=== PATIENT | male | born 1965 | race American Indian/Alaskan Native ===

== ENCOUNTER 2017-02-03 14:29 | Emergency (ER) | payer SELFPAY ==
[2017-02-03 16:00] LABS: Basophils % (Auto) 1.1 % (0.0-1.8); Eosinophils % (Auto) 1.9 % (0.0-4.3); Hematocrit 44.7 % (35.5-45.6); Hemoglobin 14.7 gm/dl (11.8-15.2); Mean Corpuscular HGB Conc 33 % (32-34); Mean Corpuscular Hemoglobin 29 pg (28-32); Mean Corpuscular Volume 88 fl (84-94); Platelet Count 230 K/mm3 (140-440); Red Blood Count 5.07 M/mm3 (3.65-5.03); Red Cell Distribution Width 13.2 % (13.2-15.2); White Blood Count 6.2 K/mm3 (4.5-11.0)
[2017-02-03 16:19] LABS: Anion Gap 16 mmol/L; BUN/Creatinine Ratio 24; Blood Urea Nitrogen 19 mg/dL (9-20); Calcium 9.2 mg/dL (8.4-10.2); Carbon Dioxide 24 mmol/L (22-30); Glucose 123 mg/dL (75-100); Potassium 4.2 mmol/L (3.6-5.0); Sodium 140 mmol/L (137-145)
[2017-02-03] MEDS ORDERED: NACL 0.9% 250ML 250 ML IV ONE (16:35)
--- NOTE | 2017-02-03 16:36 | Emergency Department Report ---
ED Chest Pain HPI - General Chief Complaint: Chest Pain Stated Complaint: CHEST PAIN Time Seen by Provider: 02/03/17 16:24 Source: patient, EMS (ems notes not available at time of chart dictation) Mode of arrival: Stretcher Limitations: No Limitations - History of Present Illness Initial Comments: This is a 51-year-old male. His primary care doctor is Dr. Pickens. He has a past medical history of hypertension. He presents to the ER with a complaint of chest pain. Chest pain is epigastric and substernal. It does not radiates to the back, arms or neck. There is no shortness of breath, nausea, vomiting or diaphoresis. There is no leg pain. There is no leg swelling. No DVT or pulmonary embolus risk factors. The patient also describes simultaneous right flank pain. The pain increases with standing, talking, twisting, and walking. It does not radiate anywhere. MD Complaint: chest pain -: Gradual, days(s) (patient reports chest pain and flank pain and have him present for a few days) Pain Location: substernal, epigastric Severity: mild Severity scale (0 -10): 0 Quality: aching Consistency: intermittent Improves With: nothing Worsens With: other (as per history of present illness) re: denies: nausea, vomting, diaphoresis, dyspnea, sense of impending doom Other Symptoms: denies: cough, fever, syncope Aspirin use within the Past 7 Days: (0) No - Related Data On Oral Contraceptives: No Home Medications Medication Instructions Recorded Confirmed Last Taken Metoprolol [Lopressor TAB] 25 mg PO QDAY 02/03/17 02/03/17 Unknown Valsartan [Diovan] 160 mg PO QDAY 02/03/17 02/03/17 Unknown amLODIPine [Norvasc] 10 mg PO QDAY 02/03/17 02/03/17 Unknown Allergies Allergy/AdvReac Type Severity Reaction Status Date / Time No Known Allergies Allergy Unverified 02/03/17 14:38 Heart Score - HEART Score History: Slightly suspicious EKG: Non-specific Age: 45-65 Risk factors: 1-2 risk factors Troponin: < normal limit HEART Score: 3 - Critical Actions Critical Actions: 0-3 pts:0.9-1.7%risk of adverse cardiac event.Candidate for discharge ED Review of Systems ROS: Stated complaint: CHEST PAIN Other details as noted in HPI Constitutional: denies: fever Eyes: denies: vision change ENT: denies: epistaxis Respiratory: denies: cough Cardiovascular: chest pain Gastrointestinal: abdominal pain Genitourinary: denies: dysuria Musculoskeletal: denies: back pain Skin: denies: lesions Neurological: denies: weakness Psychiatric: denies: anxiety ED Past Medical Hx - Past Medical History Hx Hypertension: Yes - Surgical History Additional Surgical History: Right ear - Social History Smoking Status: Former Smoker Substance Use Type: Alcohol - Medications Home Medications: Home Medications Medication Instructions Recorded Confirmed Last Taken Type Metoprolol [Lopressor TAB] 25 mg PO QDAY 02/03/17 02/03/17 Unknown History Valsartan [Diovan] 160 mg PO QDAY 02/03/17 02/03/17 Unknown History amLODIPine [Norvasc] 10 mg PO QDAY 02/03/17 02/03/17 Unknown History ED Physical Exam - General Limitations: No Limitations General appearance: alert, in no apparent distress - Head Head exam: Present: atraumatic, normocephalic - Eye Eye exam: Present: normal appearance, EOMI. Absent: nystagmus - ENT ENT exam: Present: normal exam, normal orophraynx, mucous membranes moist, normal external ear exam - Neck Neck exam: Present: normal inspection, full ROM. Absent: tenderness, meningismus - Respiratory Respiratory exam: Present: normal lung sounds bilaterally. Absent: respiratory distress, wheezes, rales, rhonchi, stridor, decreased breath sounds - Cardiovascular Cardiovascular Exam: Present: normal rhythm, bradycardia, normal heart sounds. Absent: tachycardia, irregular rhythm, systolic murmur, diastolic murmur, rubs, gallop - GI/Abdominal GI/Abdominal exam: Present: soft, normal bowel sounds. Absent: distended, tenderness, guarding, rebound, rigid, pulsatile mass - Rectal Rectal exam: Present: deferred - Extremities Exam Extremities exam: Present: normal inspection, full ROM, normal capillary refill. Absent: pedal edema, joint swelling, calf tenderness - Back Exam Back exam: Present: normal inspection, full ROM. Absent: tenderness, CVA tenderness (R), CVA tenderness (L), muscle spasm, paraspinal tenderness, vertebral tenderness - Neurological Exam Neurological exam: Present: alert, oriented X3, normal gait, other (Extraocular movements intact. Tongue midline. No facial droop. Facial sensation intact to light touch in the V1, V2, V3 distribution bilaterally. 5 and 5 strength in 4 extremities.. Sensation is intact to light touch in 4 extremities.). Absent : motor sensory deficit - Psychiatric Psychiatric exam: Present: normal affect, normal mood, other (2+ pulses noted in the bilateral upper and lower extremities) - Skin Skin exam: Present: warm, dry, intact, normal color. Absent: rash ED Course Vital Signs 02/03/17 02/03/17 02/03/17 14:31 14:38 14:46 Temperature 98.0 F Pulse Rate 52 L 54 L 54 L Respiratory 11 L 15 Rate Blood Pressure 140/74 O2 Sat by Pulse 99 99 Oximetry 02/03/17 02/03/17 02/03/17 15:00 15:30 16:18 Temperature Pulse Rate 53 L 49 L 49 L Respiratory 14 12 13 Rate Blood Pressure 121/70 124/79 124/79 O2 Sat by Pulse 100 100 100 Oximetry 02/03/17 02/03/17 02/03/17 16:30 17:26 17:30 Temperature Pulse Rate 62 Respiratory 13 Rate Blood Pressure 124/79 124/79 124/79 O2 Sat by Pulse 100 99 99 Oximetry 02/03/17 02/03/17 02/03/17 18:00 18:30 19:00 Temperature Pulse Rate 48 L 59 L 50 L Respiratory 9 L 12 12 Rate Blood Pressure 143/81 143/81 157/86 O2 Sat by Pulse 100 99 100 Oximetry 02/03/17 02/03/17 02/03/17 19:30 20:00 20:30 Temperature Pulse Rate 51 L 50 L 48 L Respiratory 12 14 16 Rate Blood Pressure 147/86 138/79 129/87 O2 Sat by Pulse 96 97 99 Oximetry 02/03/17 02/03/17 02/03/17 21:00 22:24 22:30 Temperature Pulse Rate 51 L Respiratory 13 Rate Blood Pressure 139/91 129/87 148/84 O2 Sat by Pulse 98 99 97 Oximetry 02/03/17 02/03/17 02/03/17 22:45 23:00 23:30 Temperature 98.3 F Pulse Rate Respiratory Rate Blood Pressure 151/92 150/88 O2 Sat by Pulse 99 100 Oximetry - Reevaluation(s) Reevaluation #1: 02/03/17 19:[address] scan demonstrated pneumomediastinum. Consult obtained from [facility] cardiothoracic surgeon, Dr. Yuniel Yu MD He recommends broad-spectrum antibiotics, Zosyn in particular, and opined that patient can eventually be discharged with Augmentin. Also recommends an esophagram. We both agree that the patient does not require transfer at this time, however he indicates that the patient can be transferred if he develops any complications or his clinical course changes, and he also indicates his service can be contacted at any time if the inpatient team has any questions. Reevaluation #2: 02/03/17 19:18 Dr. Singer accepted the patient to the medical service. Reevaluation #3: 02/03/17 19:19 I will defer to the inpatient team to obtain the esophagram. Reevaluation #4: 02/03/17 19:44 Change in plans: Contacted pulmonology, Dr. Bañuelos; she recommends transfer to facility that has cardiothoracic surgery. Hospital physician, Dr. Singer, indicates he cannot accept the patient given diagnosis o of pneumomediastinum. This is because this hospital does not have cardiothoracic surgery available for consultation. I have recontacted [facility], and rediscuss the case with their cardiothoracic surgeon , Dr. Yuniel Yu MD He indicates he is amenable to consultation on the patient at the [facility], but requests that their medical team admit the patient. Reevaluation #5: 02/03/17 20:42 [place] [facility]. At this point time, they've been unable to return my phone calls, although the [facility] transfer center has updated me that they're still waiting to get in touch with their hospitalist team. I have then contacted the [facility] transfer Center and spoke to their cardiothoracic surgeon, Dr. Freeman, who accepted the patient is a transfer. The family is informed. I have requested my nursing staff to inform the [facility] transfer center that request for transfer has been canceled. Family has been informed. ROSIO score - Rosio Score Age > 65: (0) No Aspirin use within the Past 7 Days: (0) No 3 or more CAD Risk Factors: (0) No 2 or more Angina events in past 24 hrs: (0) No Known CAD with more than 50% Stenosis: (0) No Elevated Cardiac Markers: (0) No ED Medical Decision Making - Lab Data Result diagrams: 02/03/17 15:50 02/03/17 14:44 Vital Signs 02/03/17 02/03/17 02/03/17 14:31 14:38 14:46 Temperature 98.0 F Pulse Rate 52 L 54 L 54 L Respiratory 11 L 15 Rate Blood Pressure 140/74 O2 Sat by Pulse 99 99 Oximetry 02/03/17 02/03/17 02/03/17 15:00 15:30 16:18 Temperature Pulse Rate 53 L 49 L 49 L Respiratory 14 12 13 Rate Blood Pressure 121/70 124/79 124/79 O2 Sat by Pulse 100 100 100 Oximetry 02/03/17 02/03/17 02/03/17 16:30 17:26 17:30 Temperature Pulse Rate 62 Respiratory 13 Rate Blood Pressure 124/79 124/79 124/79 O2 Sat by Pulse 100 99 99 Oximetry Lab Results 02/03/17 02/03/17 02/03/17 Range/Units 14:44 15:50 16:15 WBC 6.2 (4.5-11.0) K/mm3 RBC 5.07 H (3.65-5.03) M/mm3 Hgb 14.7 (11.8-15.2) gm/dl Hct 44.7 (35.5-45.6) % MCV 88 (84-94) fl MCH 29 (28-32) pg MCHC 33 (32-34) % RDW 13.2 (13.2-15.2) % Plt Count 230 (140-440) K/mm3 Lymph % (Auto) 34.7 (13.4-35.0) % [place] % (Auto) 8.2 H (0.0-7.3) % Eos % (Auto) 1.9 (0.0-4.3) % Baso % (Auto) 1.1 (0.0-1.8) % Lymph # 2.2 (1.2-5.4) K/mm3 [place] # 0.5 (0.0-0.8) K/mm3 Eos # 0.1 (0.0-0.4) K/mm3 Baso # 0.1 (0.0-0.1) K/mm3 Seg Neutrophils % 54.1 (40.0-70.0) % Seg Neutrophils # 3.4 (1.8-7.7) K/mm3 PT 13.3 (12.2-14.9) Sec. INR 0.96 (0.87-1.13) APTT 31.7 (24.2-36.6) Sec. D-Dimer (0-234) ng/mlDDU Sodium 140 (137-145) mmol/L Potassium 4.2 (3.6-5.0) mmol/L Chloride 104.0 (98-107) mmol/L Carbon Dioxide 24 (22-30) mmol/L Anion Gap 16 mmol/L BUN 19 (9-20) mg/dL Creatinine 0.8 (0.8-1.5) mg/dL Estimated GFR > 60 ml/min BUN/Creatinine Ratio 24 % Glucose 123 H (75-100) mg/dL Calcium 9.2 (8.4-10.2) mg/dL Troponin T < 0.010 (0.00-0.029) ng/mL Urine Color (Yellow) Urine Turbidity (Clear) Urine pH (5.0-7.0) Ur Specific [place] (1.003-1.030) Urine Protein (Negative) mg/dL Urine Glucose (UA) (Negative) mg/dL Urine Ketones (Negative) mg/dL Urine Blood (Negative) Urine Nitrite (Negative) Urine Bilirubin (Negative) Urine Urobilinogen (<2.0) mg/dL Ur Leukocyte Esterase (Negative) Urine WBC (Auto) (0.0-6.0) /HPF Urine RBC (Auto) (0.0-6.0) /HPF 02/03/17 02/03/17 Range/Units 16:15 17:50 WBC (4.5-11.0) K/mm3 RBC (3.65-5.03) M/mm3 Hgb (11.8-15.2) gm/dl Hct (35.5-45.6) % MCV (84-94) fl MCH (28-32) pg MCHC (32-34) % RDW (13.2-15.2) % Plt Count (140-440) K/mm3 Lymph % (Auto) (13.4-35.0) % [place] % (Auto) (0.0-7.3) % Eos % (Auto) (0.0-4.3) % Baso % (Auto) (0.0-1.8) % Lymph # (1.2-5.4) K/mm3 [place] # (0.0-0.8) K/mm3 Eos # (0.0-0.4) K/mm3 Baso # (0.0-0.1) K/mm3 Seg Neutrophils % (40.0-70.0) % Seg Neutrophils # (1.8-7.7) K/mm3 PT (12.2-14.9) Sec. INR (0.87-1.13) APTT (24.2-36.6) Sec. D-Dimer 579.3 H (0-234) ng/mlDDU Sodium (137-145) mmol/L Potassium (3.6-5.0) mmol/L Chloride (98-107) mmol/L Carbon Dioxide (22-30) mmol/L Anion Gap mmol/L BUN (9-20) mg/dL Creatinine (0.8-1.5) mg/dL Estimated GFR ml/min BUN/Creatinine Ratio % Glucose (75-100) mg/dL Calcium (8.4-10.2) mg/dL Troponin T (0.00-0.029) ng/mL Urine Color Straw (Yellow) Urine Turbidity Clear (Clear) Urine pH 6.0 (5.0-7.0) Ur Specific [place] 1.024 (1.003-1.030) Urine Protein <15 mg/dl (Negative) mg/dL Urine Glucose (UA) Neg (Negative) mg/dL Urine Ketones Neg (Negative) mg/dL Urine Blood Sm (Negative) Urine Nitrite Neg (Negative) Urine Bilirubin Neg (Negative) Urine Urobilinogen < 2.0 (<2.0) mg/dL Ur Leukocyte Esterase Neg (Negative) Urine WBC (Auto) < 1.0 (0.0-6.0) /HPF Urine RBC (Auto) 1.0 (0.0-6.0) /HPF - EKG Data -: EKG Interpreted by [place] - EKG Data 02/03/17 19:18 EKG #1 demonstrates sinus bradycardia, 52 bpm, nonspecific ST abnormality, not morphologically consistent with ST elevation myocardial infarction. Repeat EKG is unchanged. - Radiology Data Radiology results: report reviewed, image reviewed interpreted by me: X-ray the chest is negative for acute disease CT scan of the chest: No pulmonary embolus. No obvious dissection noted. The right upper trachea demonstrates a small amount of pneumomediastinum. The esophagus is located to the left of midline and has a collapsed appearance. No surrounding air or inflammation in the adjacent fat is seen along the upper esophagus. Perforated viscus of the esophagus is not excluded. Critical care attestation.: If time is entered above; I have spent that time in minutes in the direct care of this critically ill patient, excluding procedure time. ED Disposition Clinical Impression: Pneumomediastinum Dis[facility] IP Is pt being admited?: No Condition: Good Referrals: PRIMARY CAREMD [Primary Care Provider] - 3-5 Days
[2017-02-03 16:38] LABS: INR 0.96 (0.87-1.13)
--- NOTE | 2017-02-03 16:38 | XRay Report ---
Chest 2 views. History: Chest pain. Findings: The heart and pulmonary vessels are normal. The lungs are clear. There is no pleural fluid. Degenerative disc changes are seen in the mid and lower dorsal spine. Impression: No acute findings.
[2017-02-03 16:39] LABS: Partial Thromboplastin Time 31.7 Sec. (24.2-36.6)
--- NOTE | 2017-02-03 17:05 | History and Physical Report ---
History of Present Illness Chief complaint: My chest hurts History of present illness: 51 YO Male with HTN, Obesity presents to ED for evaluation. Pt states that he has experienced pain in his chest for the past week with worsening and more frequent symptoms over the past 3 days. Pt states that pain is 4-6/10, intermittent, substernal, nonradiating, not worsened with exertion, or relieved with rest, not associated with meals. Pt denies fever, chills, Palpitations, shortness of breath, nausea, vomiting, diaphoresis, productive cough, unintentional weight loss, night sweats, prolonged travel/immobility, leg swelling, calf pain, individual/family history of DVT/PE. Pt seen and evaluated in ED. Pt was found to have Nonspecific EKG changes without previous EKG for comparison. Pt also had an elevated Ddimer, and underwent CTA chest which revealed pneumomediastinum. Pt was subsequently admitted for ICU. Upon further discussion and evaluation, the patient was transferred for further care and possible evaluation by CT surgery. Past History Past Medical History: hypertension, other (Obesity) Past Surgical History: Other (right ear) Social history: , lives with family. denies: smoking, alcohol abuse, prescription drug abuse Family history: CAD, hypertension Medications and Allergies Allergies Allergy/AdvReac Type Severity Reaction Status Date / Time No Known Allergies Allergy Unverified 02/03/17 14:38 Home Medications Medication Instructions Recorded Confirmed Last Taken Type Metoprolol [Lopressor TAB] 25 mg PO QDAY 02/03/17 02/03/17 Unknown History Valsartan [Diovan] 160 mg PO QDAY 02/03/17 02/03/17 Unknown History amLODIPine [Norvasc] 10 mg PO QDAY 02/03/17 02/03/17 Unknown History Review of Systems Constitutional: no weight loss, no weight gain, no fever, no chills Ears, nose, mouth and throat: no ear pain, no ear discharge, no tinnitis, no decreased hearing, no nose pain, no nasal congestion, no nasal discharge, no sinus pressure Cardiovascular: chest pain, no orthopnea, no palpitations, no rapid/irregular heart beat, no edema Respiratory: no cough, no cough with sputum, no excessive sputum, no hemoptysis , no shortness of breath Gastrointestinal: no abdominal pain, no nausea, no vomiting, no diarrhea Genitourinary Male: no hematuria, no flank pain, no discharge, no urinary frequency, no urinary hesitancy, no nocturia Rectal: no pain, no incontinence, no bleeding Musculoskeletal: no neck stiffness, no neck pain, no shooting arm pain, no arm numbness/tingling, no low back pain, no shooting leg pain, no leg numbness/ tingling Integumentary: no rash, no pruritis, no redness, no sores, no wounds, no jaundice Neurological: no head injury, no transient paralysis, no paralysis, no weakness , no parathesias, no numbness, no tingling, no seizures Psychiatric: no anxiety, no memory loss, no change in sleep habits, no sleep disturbances, no insomnia, no hypersomnia, no change in appetite, no change in libido Endocrine: no cold intolerance, no heat intolerance, no polyphagia, no excessive thirst, no polydipsia, no polyuria, no nocturia Hematologic/Lymphatic: no easy bruising, no easy bleeding Allergic/Immunologic: no urticaria, no allergic rhinitis, no wheezing Exam - Constitutional Vitals: Temp Pulse Resp BP Pulse Ox 98.0 F 53 L 14 121/70 100 02/03/17 14:38 02/03/17 15:00 02/03/17 15:00 02/03/17 15:00 02/03/17 15:00 General appearance: Present: mild distress - EENT Eyes: Present: PERRL ENT: hearing intact, clear oral mucosa - Neck Neck: Present: supple, normal ROM - Respiratory Respiratory effort: normal Respiratory: bilateral: CTA - Cardiovascular Heart Sounds: Present: S1 & S2. Absent: rub, click - Extremities Extremities: pulses symmetrical, No edema Peripheral Pulses: within normal limits - Abdominal General gastrointestinal: Present: soft, non-tender, non-distended, normal bowel sounds Male genitourinary: Present: normal - Integumentary Integumentary: Present: clear, warm, dry - Musculoskeletal Musculoskeletal: gait normal, strength equal bilaterally - Psychiatric Psychiatric: appropriate mood/affect, intact judgment & insight - Neurologic Neurologic: CNII-XII intact, moves all extremities Results - Labs CBC & Chem 7: 02/03/17 15:50 02/03/17 14:44 Labs: Abnormal lab results 02/03/17 02/03/17 Range/Units 14:44 15:50 RBC 5.07 H (3.65-5.03) M/mm3 [place] % (Auto) 8.2 H (0.0-7.3) % Glucose 123 H (75-100) mg/dL Assessment and Plan - Patient Problems (1) Pneumomediastinum Current Visit: Yes Status: Acute Plan to address problem: Pt initially admitted planned for ICU admission, but aafter further evaluation, Pt deemed high risk for possible decompensation if patient has esophageal leak. Pt to be transferred fot CT surgery evaluation. The high probability of a clinically significant, sudden or life threatening deterioration of the [Respiratory, cardiac, gi] system(s) required my full and direct attention, intervention and personal management. The aggregate critical care time was [65] minutes. This time is in addition to time spent performing reported procedures but includes the following: [x] Data Review and interpretation [x] Patient assessment and monitoring of vital signs [x] Documentation [x] Medication orders and management (2) HTN (hypertension) Current Visit: Yes Status: Acute Qualifiers: Hypertension type: H Plan to address problem: monitor bp q shift, continue medical management (3) Obesity Current Visit: Yes Status: Acute Qualifiers: Obesity type: O Obesity classification: O Serious obesity comorbidity presence: S Body mass index: BMI 33.0-33.9 Plan to address problem: Pt counseled, balanced diet, increased physical activity at discharge.
[2017-02-03 17:59] LABS: Urine Drugs of Abuse Note Disclamer
[2017-02-03 18:08] LABS: Bilirubin,Urine NEG (Negative); Blood,Urine SM (Negative); Ketones,Urine NEG (Negative); Leukocyte Esterase,Urine NEG (Negative); Nitrite,Urine NEG (Negative); Protein,Urine <15 mg/dL mg/dL (Negative); Urobilinogen,Urine < 2.0 mg/dL (<2.0); WBC,Urine < 1.0 /HPF (0.0-6.0)
--- NOTE | 2017-02-03 18:21 | Cat Scan Report ---
FINAL REPORT EXAM: CT ANGIO CHEST HISTORY: CP TECHNIQUE: Enhanced CT of the chest at 2.5 mm axial intervals following a pulmonary embolism protocol. Coronal and sagittal imaging were also obtained. Oblique coronal MIP projections were obtained. Contrast: 100 ml of Omnipaque 350 given IV. PRIORS: None. FINDINGS: There is no evidence for pulmonary embolism in the main pulmonary artery, right and left pulmonary arteries or their major distributions. However, CT does not exclude distal pulmonary emboli. There is a small amount of air (Pneumomediastinum) to the right of the upper trachea located between the inferior tip of the thyroid and the left brachiocephalic vein as it crosses midline. Significance is uncertain. At this level, the esophagus located to the left of midline, has a collapsed appearance. No surrounding air or inflammation in the adjacent fat is seen along the upper esophagus. There are small apical bulla present bilaterally. Otherwise, the lung parenchyma are expanded and clear with no evidence for parenchymal nodules, infiltrates, congestion, or pleural effusion. There is no evidence for mediastinal, hilar, or axillary adenopathy. Cardiovascular structures are within normal limits. No evidence for ventricular chamber enlargement is seen. Images through the lung bases include the upper abdomen which show a small 1.4 x 1.5 cm low-density nodule in the right adrenal gland, likely an adenoma. Bony structures demonstrate no focal abnormalities. IMPRESSION: 1. no evidence for pulmonary embolism. 2. the right of the upper trachea small amount of new mediastinum to the right of the upper trachea of uncertain etiology. Perforated viscus such as the esophagus is not excluded. 3. Small bilateral apical bulla 4. Nodule in the right adrenal gland, likely an adenoma.
--- NOTE | 2017-02-03 18:35 | Cat Scan Report ---
FINAL REPORT EXAM: CT ANGIO ABDOMEN PELVIS HISTORY: cp TECHNIQUE: Standard enhanced CTA of the abdomen and pelvis. Coronal and sagittal reconstruction was also performed. Imaging was obtained 1.25 mm and 2.5 mm axial increments. Oblique coronal MIP images of the abdomen and pelvis were obtained. Contrast: 100 mL Omnipaque 350 given IV. PRIORS: CT chest 02/03/2017 FINDINGS: No evidence for pneumoperitoneum is seen. No pneumomediastinum is seen in the lower lung bases. Within the abdomen, the liver, spleen, pancreas, gallbladder, left adrenal gland, and kidneys are unremarkable. There is a 1.4 x 1.5 cm nodule in the right adrenal gland. This appears low-density in its probably an adenoma. No evidence for retroperitoneal or pelvic lymphadenopathy is seen. Moderate stool is present throughout the colon. The bowel loops have normal caliber. No soft tissue mass, fluid collection, inflammatory change, or free air is seen within the abdomen or pelvis. The appendix is normal. The aorta is normal in caliber with minimal calcification of the wall. All of the major branches from the aorta and the common iliac arteries are all widely patent without significant atherosclerotic disease. Within the pelvis, the bladder is unremarkable. The prostate is normal. No evidence for mass or lymphadenopathy is seen in the pelvis. Images through the upper abdomen include the lung bases which are expanded and clear. Bony structures show no focal abnormalities and are intact. IMPRESSION: 1. no acute intra-abdominal process noted. 2. No evidence for free air within the abdomen. 3. Nodule in the right adrenal gland, probably an adenoma.
[2017-02-03] MEDS ORDERED: ZOSYN/NS 4.5GM/100ML 4.5 GM/100 ML VIAL IV ONE (20:17)
[2017-02-03 23:47] VITALS: BP 150/88
== END 2017-02-04 00:20 | disposition short-term general hospital (02) ==
LOC: ED 14:29
DX: J98.2 Interstitial emphysema (principal); I10 Essential (primary) hypertension; Z87.891 Personal history of nicotine dependence
CPT/HCPCS: 36415; 71020; 71275; 74174; 80048; 80307; 81001; 84484; 85025; 85379; 85610; 85730; 93005; 93010; 96361; 96365; 99285; J2543; J7050; Q9967

== ENCOUNTER 2017-06-27 11:55 | Emergency (ER) | payer BC ==
[2017-06-27 16:59] LABS: Basophils # (Auto) 0.1 K/mm3 (0.0-0.1); Basophils % (Auto) 0.9 % (0.0-1.8); Eosinophils # (Auto) 0.1 K/mm3 (0.0-0.4); Eosinophils % (Auto) 1.2 % (0.0-4.3); Hematocrit 46.5 % (35.5-45.6); Hemoglobin 15.3 gm/dl (11.8-15.2); Lymphocytes # (Auto) 2.5 K/mm3 (1.2-5.4); Lymphocytes % (Auto) 40.6 % (13.4-35.0); Mean Corpuscular HGB Conc 33 % (32-34); Mean Corpuscular Hemoglobin 29 pg (28-32); Mean Corpuscular Volume 88 fl (84-94); Monocytes # (Auto) 0.7 K/mm3 (0.0-0.8); Platelet Count 248 K/mm3 (140-440); Red Blood Count 5.31 M/mm3 (3.65-5.03); Red Cell Distribution Width 13.3 % (13.2-15.2)
[2017-06-27 17:14] LABS: Alanine Aminotransferase 19 units/L (7-56); Albumin 4.2 g/dL (3.9-5); BUN/Creatinine Ratio 16; Blood Urea Nitrogen 14 mg/dL (9-20); Calcium 8.8 mg/dL (8.4-10.2); Hemolysis Index 6
[2017-06-27 18:13] LABS: Bilirubin,Urine NEG (Negative); Blood,Urine NEG (Negative); Color,Urine Yellow (Yellow); Mucus,Urine FEW /HPF; Protein,Urine <15 mg/dL mg/dL (Negative)
--- NOTE | 2017-06-27 19:02 | Emergency Department Report ---
Blank Doc - Documentation Documentation: Patient is a 52-year-old [place] male who is presenting with right-sided flank pain. Patient's had some flank discomfort for approximately 2-3 weeks. Patient states initially had a cough and some mild shortness of breath and now he is no longer coughing but has pain when he moves when he takes a deep breath. Patient denies any dysuria or hematuria current shortness of breath this time. Patient states he sometimes has a sensation that he wants to cough but he tries not to because of pain. Urinalysis was ordered to rule out hematuria or evidence of urinary stone. D- dimer was ordered to rule out PE chest x-ray was ordered to rule out atypical pneumonia or lung pathology causing this right-sided flank pain. Of
[2017-06-27] MEDS ORDERED: NACL ONE (19:40)
--- NOTE | 2017-06-27 20:20 | XRay Report ---
FINAL REPORT EXAM: XR CHEST ROUTINE 2V HISTORY: right flank pain with cough TECHNIQUE: Two view chest PA and lateral PRIORS: None. FINDINGS: Cardiac and mediastinal contours are unremarkable. No focal pulmonary infiltrate is identified. No pleural fluid collection seen. Pulmonary vasculature is unremarkable. IMPRESSION: Negative two-view chest
--- NOTE | 2017-06-27 21:07 | Cat Scan Report ---
FINAL REPORT EXAM: CT ANGIO CHEST HISTORY: right upper flank pleurisy elevated ddimer TECHNIQUE: CT chest CT angiogram with reconstructions PRIORS: None. FINDINGS: There is no evidence of filling defect within the central pulmonary vasculature to suggest the presence of acute pulmonary embolus. No evidence of mediastinal pathologic lymph node enlargement Heart and great vessels are unremarkable. The aorta is normal in caliber. No focal pulmonary infiltrate identified. No pleural fluid collection seen. No acute pulmonary abnormality noted. Few small subpleural blebs are noted is right upper. Visualized portion of the upper abdomen demonstrates no acute change. Noted is 1.2 centimeter low-density focus right adrenal gland probable adenoma. IMPRESSION: 1.2 centimeter low-density focus right adrenal gland likely adenoma. No CT evidence of acute pulmonary embolus
[2017-06-27] MEDS ORDERED: TYLENOL PO ONE (22:28)
[2017-06-27] MEDS ORDERED: TORADOL IV ONE (22:28)
--- NOTE | 2017-06-27 22:28 | Emergency Department Report ---
ED General Adult HPI - General Chief complaint: Abdominal Pain Stated complaint: RIGHT SIDE LOWER PAIN Time Seen by Provider: 06/27/17 17:43 Source: patient, police, RN notes reviewed, old records reviewed Mode of arrival: Ambulatory Limitations: No Limitations - History of Present Illness Initial comments: This is a 52-year-old male whom I have evaluated in the past. Please see my note from 02/03/2017 for full details of the patient's past medical history. The patient presents to the ER today with complaint of right-sided lateral thoracic pain which has been present for 2 weeks to 4 weeks. It increases with palpation, twisting, range of motion, coughing. It does not radiate anywhere. He does not have other exacerbating or relieving factors. There is no headache , neck pain, chest pain, abdominal pain, shortness of breath, testicular pain, irritative urinary symptoms. The patient further denies hematuria, and obstructive urinary symptoms. The patient further endorses that he is going to follow-up with [place] [facility] later on this week on Tuesday and for a cardiac risk stratification. -: Gradual, week(s) Location: chest (right lateral thoracic wall) Radiation: non-radiation Quality: aching Consistency: intermittent Improves with: other Worsens with: other Associated Symptoms: denies other symptoms, chest pain (right-sided chest wall pain for weeks). denies: confusion, cough, diaphoresis, fever/chills, headaches , loss of appetite, malaise, nausea/vomiting, rash, seizure, shortness of breath , syncope, weakness - Related Data Home Medications Medication Instructions Recorded Confirmed Last Taken Metoprolol [Lopressor TAB] 25 mg PO QDAY 02/03/17 02/03/17 Unknown Valsartan [Diovan] 160 mg PO QDAY 02/03/17 02/03/17 Unknown amLODIPine [Norvasc] 10 mg PO QDAY 02/03/17 02/03/17 Unknown Previous Rx's Medication Instructions Recorded Last Taken Type Acetaminophen [Tylenol Arthritis] 650 mg PO Q6HR PRN #30 tablet.er 06/27/17 Unknown Rx Ibuprofen [Motrin] 600 mg PO Q8H PRN #30 tablet 06/27/17 Unknown Rx Allergies Allergy/AdvReac Type Severity Reaction Status Date / Time No Known Allergies Allergy Unverified 02/03/17 14:38 ED Review of Systems ROS: Stated complaint: RIGHT SIDE LOWER PAIN Other details as noted in HPI Comment: All other systems reviewed and negative ED Past Medical Hx - Past Medical History Hx Hypertension: Yes - Surgical History Additional Surgical History: Right ear - Social History Smoking Status: Former Smoker Substance Use Type: Alcohol - Medications Home Medications: Home Medications Medication Instructions Recorded Confirmed Last Taken Type Metoprolol [Lopressor TAB] 25 mg PO QDAY 02/03/17 02/03/17 Unknown History Valsartan [Diovan] 160 mg PO QDAY 02/03/17 02/03/17 Unknown History amLODIPine [Norvasc] 10 mg PO QDAY 02/03/17 02/03/17 Unknown History Acetaminophen [Tylenol Arthritis] 650 mg PO Q6HR PRN #30 tablet.er 06/27/17 Unknown Rx Ibuprofen [Motrin] 600 mg PO Q8H PRN #30 tablet 06/27/17 Unknown Rx ED Physical Exam - General Limitations: No Limitations General appearance: alert, in no apparent distress - Head Head exam: Present: atraumatic, normocephalic - Eye Eye exam: Present: normal appearance, EOMI. Absent: nystagmus - ENT ENT exam: Present: normal exam, normal orophraynx, mucous membranes moist, normal external ear exam - Neck Neck exam: Present: normal inspection, full ROM - Respiratory Respiratory exam: Present: normal lung sounds bilaterally, chest wall tenderness (there is right-sided reproducible lateral thoracic wall tenderness. There is no redness, pus or streaking. There are no vesicles noted.). Absent : respiratory distress - Cardiovascular Cardiovascular Exam: Present: regular rate, normal rhythm, normal heart sounds. Absent: bradycardia, tachycardia, irregular rhythm, systolic murmur, diastolic murmur, rubs, gallop - GI/Abdominal GI/Abdominal exam: Present: soft, normal bowel sounds. Absent: distended, tenderness, guarding, rebound, rigid, pulsatile mass - Rectal Rectal exam: Present: deferred - Extremities Exam Extremities exam: Present: normal inspection, full ROM, normal capillary refill , other (2+ pulses noted in the bilateral upper and lower extremities). Absent : tenderness, pedal edema, joint swelling, calf tenderness - Back Exam Back exam: Present: normal inspection, full ROM. Absent: tenderness, CVA tenderness (R), paraspinal tenderness, vertebral tenderness - Neurological Exam Neurological exam: Present: alert, oriented X3, CN II-XII intact, normal gait, other (Extraocular movements intact. Tongue midline. No facial droop. Facial sensation intact to light touch in the V1, V2, V3 distribution bilaterally. 5 and 5 strength in 4 extremities.. Sensation is intact to light touch in 4 extremities.). Absent: motor sensory deficit - Psychiatric Psychiatric exam: Present: normal affect, normal mood - Skin Skin exam: Present: warm, dry, intact, normal color. Absent: rash ED Course Vital Signs 06/27/17 12:25 Temperature 98 F Pulse Rate 56 L Respiratory 18 Rate Blood Pressure 141/72 O2 Sat by Pulse 100 Oximetry ED Medical Decision Making - Lab Data Result diagrams: 06/27/17 16:39 06/27/17 16:39 Vital Signs 06/27/17 12:25 Temperature 98 F Pulse Rate 56 L Respiratory 18 Rate Blood Pressure 141/72 O2 Sat by Pulse 100 Oximetry Lab Results 06/27/17 06/27/17 06/27/17 Range/Units 16:39 16:39 17:57 WBC 6.1 (4.5-11.0) K/mm3 RBC 5.31 H (3.65-5.03) M/mm3 Hgb 15.3 H (11.8-15.2) gm/dl Hct 46.5 H (35.5-45.6) % MCV 88 (84-94) fl MCH 29 (28-32) pg MCHC 33 (32-34) % RDW 13.3 (13.2-15.2) % Plt Count 248 (140-440) K/mm3 Lymph % (Auto) 40.6 H (13.4-35.0) % [place] % (Auto) 11.0 H (0.0-7.3) % Eos % (Auto) 1.2 (0.0-4.3) % Baso % (Auto) 0.9 (0.0-1.8) % Lymph # 2.5 (1.2-5.4) K/mm3 [place] # 0.7 (0.0-0.8) K/mm3 Eos # 0.1 (0.0-0.4) K/mm3 Baso # 0.1 (0.0-0.1) K/mm3 Seg Neutrophils % 46.3 (40.0-70.0) % Seg Neutrophils # 2.8 (1.8-7.7) K/mm3 D-Dimer 855.46 H (0-234) ng/mlDDU Sodium 140 (137-145) mmol/L Potassium 4.4 (3.6-5.0) mmol/L Chloride 102.2 (98-107) mmol/L Carbon Dioxide 27 (22-30) mmol/L Anion Gap 15 mmol/L BUN 14 (9-20) mg/dL Creatinine 0.9 (0.8-1.5) mg/dL Estimated GFR > 60 ml/min BUN/Creatinine Ratio 16 % Glucose 103 H (75-100) mg/dL Calcium 8.8 (8.4-10.2) mg/dL Total Bilirubin 0.30 (0.1-1.2) mg/dL AST 17 (5-40) units/L ALT 19 (7-56) units/L Alkaline Phosphatase 64 (35-129) units/L Total Protein 6.9 (6.3-8.2) g/dL Albumin 4.2 (3.9-5) g/dL Albumin/Globulin Ratio 1.6 % Urine Color (Yellow) Urine Turbidity (Clear) Urine pH (5.0-7.0) Ur Specific [place] (1.003-1.030) Urine Protein (Negative) mg/dL Urine Glucose (UA) (Negative) mg/dL Urine Ketones (Negative) mg/dL Urine Blood (Negative) Urine Nitrite (Negative) Urine Bilirubin (Negative) Urine Urobilinogen (<2.0) mg/dL Ur Leukocyte Esterase (Negative) Urine WBC (Auto) (0.0-6.0) /HPF Urine RBC (Auto) (0.0-6.0) /HPF Urine Mucus /HPF 06/27/17 Range/Units 18:00 WBC (4.5-11.0) K/mm3 RBC (3.65-5.03) M/mm3 Hgb (11.8-15.2) gm/dl Hct (35.5-45.6) % MCV (84-94) fl MCH (28-32) pg MCHC (32-34) % RDW (13.2-15.2) % Plt Count (140-440) K/mm3 Lymph % (Auto) (13.4-35.0) % [place] % (Auto) (0.0-7.3) % Eos % (Auto) (0.0-4.3) % Baso % (Auto) (0.0-1.8) % Lymph # (1.2-5.4) K/mm3 [place] # (0.0-0.8) K/mm3 Eos # (0.0-0.4) K/mm3 Baso # (0.0-0.1) K/mm3 Seg Neutrophils % (40.0-70.0) % Seg Neutrophils # (1.8-7.7) K/mm3 D-Dimer (0-234) ng/mlDDU Sodium (137-145) mmol/L Potassium (3.6-5.0) mmol/L Chloride (98-107) mmol/L Carbon Dioxide (22-30) mmol/L Anion Gap mmol/L BUN (9-20) mg/dL Creatinine (0.8-1.5) mg/dL Estimated GFR ml/min BUN/Creatinine Ratio % Glucose (75-100) mg/dL Calcium (8.4-10.2) mg/dL Total Bilirubin (0.1-1.2) mg/dL AST (5-40) units/L ALT (7-56) units/L Alkaline Phosphatase (35-129) units/L Total Protein (6.3-8.2) g/dL Albumin (3.9-5) g/dL Albumin/Globulin Ratio % Urine Color Yellow (Yellow) Urine Turbidity Clear (Clear) Urine pH 5.0 (5.0-7.0) Ur Specific [place] 1.021 (1.003-1.030) Urine Protein <15 mg/dl (Negative) mg/dL Urine Glucose (UA) Neg (Negative) mg/dL Urine Ketones Neg (Negative) mg/dL Urine Blood Neg (Negative) Urine Nitrite Neg (Negative) Urine Bilirubin Neg (Negative) Urine Urobilinogen 2.0 (<2.0) mg/dL Ur Leukocyte Esterase Neg (Negative) Urine WBC (Auto) 1.0 (0.0-6.0) /HPF Urine RBC (Auto) 2.0 (0.0-6.0) /HPF Urine Mucus Few /HPF - EKG Data -: EKG Interpreted by Me - EKG Data 06/27/17 22:35 Sinus bradycardia, 49 bpm, normal intervals, normal axis, not morphologically consistent with a STEMI, appears unchanged from prior EKG from 02/03/2017. - Radiology Data Radiology results: report reviewed, image reviewed NONCONTRAST ct SCAN OF THE CHEST DEMONSTRATES CHRONIC FINDINGS, NO PULMONARY EMBOLUS, visualized portion of the right kidney is unremarkable, there is an incidental right-sided adrenal density, likely adenoma. - Medical Decision Making Differential diagnosis, including but not limited to: Costochondritis, pneumonia , pulmonary embolus Assessment and plan: 52-year-old male with 2-4 weeks of reproducible right lateral thoracic wall pain, related to motion. He is afebrile with reassuring vital signs, physical exam is otherwise unremarkable, EKG unchanged from prior, CT scan of the chest does not demonstrate any lethal or emergent pathology, he is going to follow up with outpatient cardiology on Tuesday/ for an outpatient risk stratification. Critical care attestation.: If time is entered above; I have spent that time in minutes in the direct care of this critically ill patient, excluding procedure time. ED Disposition Clinical Impression: Chest wall pain Disposition: DC-01 TO HOME OR SELFCARE Is pt being admited?: No Does the pt Need Aspirin: No Condition: Stable Instructions: Chest Pain (ED) Additional Instructions: Rest, and avoid heavy lifting. Avoid strenuous physical activity. Take the pain medication as directed. Follow-up with your tobacco educator later on this week as scheduled. Return to the ER right away with new pain, worsened pain, migration of pain, fevers, chills, lethargy, irritability, projectile vomiting, change in mental status, confusion, inability to tolerate liquid feeds, new, worsening or different symptoms. Referrals: PRIMARY CARE [Primary Care Provider] - 3-5 Days [facility] [Provider Group] - 3-5 Days
[2017-06-27 23:32] VITALS: BP 158/92
== END 2017-06-27 22:50 | disposition home or self-care (01) ==
LOC: ED 11:55
DX: R06.02 Shortness of breath (principal); I10 Essential (primary) hypertension; Z87.891 Personal history of nicotine dependence
CPT/HCPCS: 36415; 71046; 71275; 80053; 81001; 85025; 85379; 93005; 93010; 96374; 99284; J1885; Q9967